=== PATIENT | male | born 1955 | race Caucasian/White ===

== ENCOUNTER 2018-05-26 04:07 | Emergency (ER) | payer MEDICAID ==
[~2018-05-26] VITALS: Ht 182.9 cm; Wt 78.1 kg
[~2018-05-26 04:07] MED LIST: LISI-170 PO
--- NOTE | 2018-05-26 04:29 | NUR ---
PA AT BEDSIDE. PT STATES "STARTED HAVING ABDOMINAL PAIN WITH VOMITING AROUND 7PM LAST NIGHT."
[2018-05-26] MEDS ORDERED: ONDANSETRON 2MG/ML, 2ML ONE (04:51)
[2018-05-26] MEDS ORDERED: MORPHINE SULFATE 4 MG/ML, 1ML ONE (04:52)
[2018-05-26 04:54] LABS: BASOPHILS # (AUTO) 0.01 x10^3/uL (0-0.1); BASOPHILS % (AUTO) 0 % (0-1); EOSINOPHILS # (AUTO) 0.14 x10^3/uL (0-0.4); EOSINOPHILS % (AUTO) 1 % (1-7); LYMPHOCYTES # (AUTO) 0.54 x10^3/uL (1-3.4); LYMPHOCYTES % (AUTO) 6 % (22-44); MD NO; MEAN CORPUSCULAR HEMOGLOBIN 32.6 pg (27.5-34.5); MEAN CORPUSCULAR HGB CONC 33.7 g/dL (33.2-36.2); MEAN CORPUSCULAR VOLUME 96.5 fL (81-97); MEAN PLATELET VOLUME 7.2 fL (7.4-10.4); MONOCYTES # (AUTO) 0.48 x10^3/uL (0.2-0.8); MONOCYTES % (AUTO) 5 % (2-9); NEUTROPHILS # (AUTO) 8.48 x10^3/uL (1.8-6.8); NEUTROPHILS % (AUTO) 88 % (42-75); PLATELET COUNT 206 x10^3/uL (130-400); RED BLOOD COUNT 4.29 x10^6/uL (4.38-5.82); RED CELL DISTRIBUTION WIDTH 12.8 % (9.4-14.8)
--- NOTE | 2018-05-26 04:58 | NUR ---
PT MEDICATED FOR NAUSEA AND PAIN PER EMAR.
[2018-05-26] MEDS ORDERED: SODIUM CHLORIDE FLUSH 10ML SYR IVF ONE (05:00)
[2018-05-26] MEDS ORDERED: MORPHINE SULFATE 4 MG/ML, 1ML IVPush PRN (05:00)
[2018-05-26] MEDS ORDERED: ONDANSETRON 2MG/ML, 2ML IVPush ONE (05:00)
[2018-05-26 05:06] LABS: CHLORIDE 107 mmol/L (98-107)
[2018-05-26 05:12] LABS: ALANINE AMINOTRANSFERASE 46 U/L (12-78); ALBUMIN 3.9 g/dL (3.4-5.0); ALKALINE PHOSPHATASE 72 U/L (45-117); ANION GAP 6 mmol/L (5-15); BILIRUBIN,TOTAL 0.6 mg/dL (0.2-1.0); CALCIUM 8.5 mg/dL (8.5-10.1); CREATININE 1.05 mg/dL (0.7-1.3); TOTAL PROTEIN 7.8 g/dL (6.4-8.2)
--- NOTE | 2018-05-26 05:37 | NUR ---
PT SLEEPING. VITAL SIGNS CHARTED. NO PAIN OR NAUSEA VOICED.
--- NOTE | 2018-05-26 06:18 | NUR ---
PT RESTING. UPDATED ON POC. STATES "PAIN AND AND NAUSEA IS BETTER."
--- NOTE | 2018-05-26 06:40 | NUR ---
PT BACK FROM CT. UPDATED ON NEEDING URINE SAMPLE, URINAL AT BEDSIDE.
[2018-05-26] MEDS ORDERED: OMNIPAQUE 350 MG/ML, 100ML BOTTLE ONE (06:55)
--- NOTE | 2018-05-26 07:27 | NUR ---
SBAR REPORT FROM EVA KAPADIA. PT AMBULATORY TO BATHROOM WITH STEADY GAIT FOR URINE SAMPLE. ALL OTHER CONCERNS ADRESSED.
[2018-05-26 07:58] LABS: MICROSCOPIC NOT IND
[2018-05-26 08:01] LABS: CULTURE INDICATED? NO
[2018-05-26 08:59] VITALS: BP 148/101
--- NOTE | 2018-05-26 09:07 | NUR ---
Patient/Caregiver given discharge instructions and they have confirmed that they understand the instructions. Patient ambulatory with steady gait. Pt left with all personal belongings.
== END 2018-05-26 09:10 | disposition home or self-care (01) ==
LOC: ED 08:16
DX: K52.29 Other allergic and dietetic gastroenteritis and colitis (principal); I10 Essential (primary) hypertension
CPT/HCPCS: 36415; 74177; 80053; 81003; 83690; 85025; 96374; 96375; 99284; J2405; Q9967

== ENCOUNTER 2018-09-07 17:59 | Emergency (ER) | payer MEDICAID ==
[~2018-09-07] VITALS: Ht 182.9 cm; Wt 76.2 kg
[2018-09-07 18:08] VITALS: BP 166/95
[2018-09-07] MEDS ORDERED: DIPHENHYDRAMINE 50 MG/ML, 1ML IM ONE (18:30)
[2018-09-07] MEDS ORDERED: FAMOTIDINE 20 MG TABLET PO ONE (18:30)
[2018-09-07] MEDS ORDERED: DIPHENHYDRAMINE 50 MG CAPSULE ONE (18:36)
[2018-09-07] MEDS ORDERED: FAMOTIDINE 20 MG TABLET ONE (18:36)
[2018-09-07] MEDS ORDERED: DIPHENHYDRAMINE 25 MG CAPSULE ONE (18:37)
--- NOTE | 2018-09-07 18:41 | NUR ---
MEDS NOT GIVEN PER PA
== END 2018-09-07 18:44 | disposition home or self-care (01) ==
LOC: ED 18:38
DX: S00.462A Insect bite (nonvenomous) of left ear, initial encounter (principal); H60.12 Cellulitis of left external ear; I10 Essential (primary) hypertension; W57.XXXA Bitten or stung by nonvenomous insect and other nonvenomous arthropods, initial encounter; Y93.89 Activity, other specified; Y92.69 Other specified industrial and construction area as the place of occurrence of the external cause; Y99.8 Other external cause status
CPT/HCPCS: 99283